=== PATIENT | female | born 1960 | race Caucasian/White ===

== ENCOUNTER → 2016-07-06 | Outpatient (CLI) | payer OTHER ==
--- NOTE | 2016-07-06 10:44 | MR ---
EXAMINATION TYPE: MR lumbar spine wo con DATE OF EXAM: 07/06/2016 10:31 AM COMPARISON: NONE HISTORY: Patient fell on ice recently and is having increased pain in low back TECHNIQUE: T1 and T2 axial and sagittal images of the lumbar spine are submitted. FINDINGS: There is no abnormal signal seen within the visualized spinal cord or paraspinal soft tissu es. At L1-2 there is mild hypertrophic change of the facets. No disc herniation or canal stenosis. No for aminal encroachment. At L2-3 there is moderate facet arthropathy. No foraminal encroachment. No disc herniation. At L3-4 there is diffuse disc bulging with a more focal left paracentral and lateral disc protrusion and moderate left-sided foraminal encroachment. Facet arthropathy and hypertrophic change and ligamen shruthi flavum result in moderate canal stenosis. At L4-5 there is disc desiccation with severe facet arthropathy and ligamentum flavum hypertrophy. Ci rcumferential disc bulging results in mild bilateral foraminal encroachment and mild canal stenosis. At L5-S1 there is facet arthropathy but no disc herniation or canal stenosis. Neural foramina are pat ent. IMPRESSION: 1. At L3-4 there is diffuse disc bulging with a more focal left paracentral and lateral disc protrusi on and moderate left-sided foraminal encroachment. Facet arthropathy and hypertrophic change and liga mentum flavum result in moderate canal stenosis. 2. Hypertrophic changes L4-L5 with disc bulging results in mild bilateral foraminal encroachment and mild canal stenosis.
== END | disposition home or self-care (01) ==
LOC: RADMRIMAIN 09:37
PROVIDERS: ATTEND Family Medicine
DX: M48.06 Spinal stenosis, lumbar region (principal); M51.16 Intervertebral disc disorders with radiculopathy, lumbar region; M46.96 Unspecified inflammatory spondylopathy, lumbar region
CPT/HCPCS: 72148

== ENCOUNTER 2016-08-31 07:23 | Day surgery (SDC) | payer OTHER ==
[2016-08-24 12:04] VITALS: BMI 24.0
[~2016-08-31 07:23] MED LIST: DEXAMETHASONE SOD PHOSPHATE 10 MG/ML 1 ML VIAL IV ONE; HEPARIN SODIUM,PORCINE 5,000 UNIT/ML 1 ML VIAL SQ ONE; HYDROmorphone 1 MG/ML 1 ML SYRINGE IVP PRN; LACTATED RINGERS 1,000 ML IV SCH; MIDAZOLAM 2 MG/2 ML VIAL IV PRN; ONDANSETRON 4 MG/2 ML VIAL IVP ONE; Pre Op ABX Message 1 EACH MISC MISCELLANE ONE
[2016-08-31] MEDS ORDERED: LIDOCAINE 1% 20 ML VIAL (10MG/ML) FOR IV START INTRADERMA ONE (08:04)
[2016-08-31] MEDS ORDERED: PROPOFOL 10 MG/ML 20 ML VIAL IV ONE (08:58)
[2016-08-31] MEDS ORDERED: SUCCINYLCHOLINE CHLORIDE 100 MG/5 ML SYR IV ONE (08:58)
[2016-08-31] MEDS ORDERED: MIDAZOLAM 2 MG/2 ML VIAL ONE (08:58)
[2016-08-31] MEDS ORDERED: LIDOCAINE 1% INJ 10MG/ML (20 ML MDV) ONE (08:58)
[2016-08-31] MEDS ORDERED: fentaNYL (PF) 50 MCG/ML 2 ML AMP ONE (08:58)
[2016-08-31] MEDS ORDERED: HEPARIN SODIUM,PORCINE 5,000 UNIT/ML 1 ML VIAL SQ ONE (09:05)
--- NOTE | 2016-08-31 09:07 | P.PN ---
Progress Note - Text Patient had preoperative discussion regarding the fact that the patient has bloody nipple discharge and the need for duct exploration. She understands she may have some numbness to the area of the nipple as well as nipple retraction and deformity. Despite the risks and benefits which also include bleeding infection reaction to the anesthetic she wishes to proceed.
[2016-08-31] MEDS ORDERED: SODIUM CHLORIDE 0.9% 50 ML with ceFAZolin 2,000 MG IV ONE ×2 (09:15)
[2016-08-31] MEDS ORDERED: LIDOCAINE 1% INJ 10MG/ML (20 ML MDV) SQ ONE ×2 (09:25→09:49)
--- NOTE | 2016-08-31 09:49 | P.OP ---
Date of Procedure: 08/31/16 Preoperative Diagnosis: bloody nipple discharge left breast Postoperative Diagnosis: Same Procedure(s) Performed: Left breast duct exploration Implants: Anesthesia: RACHAELA Surgeon: Malini Tran Estimated Blood Loss (ml): 3 IV fluids (ml): 600 Pathology: other (Left breast tissue) Condition: stable Disposition: PACU Indications for Procedure: Bloody nipple discharge Operative Findings: Dense breast tissue posterior to the left nipple complex Description of Procedure: Patient was taken to the operating room and following induction of anesthesia the left breast was prepped and draped in a sterile fashion. An inferior circumareolar incision was made and carried down to the breast tissue. This was dissected up to the dilated duct just at the midportion of the nipple. This tissue was dissected posteriorly to the chest wall. The tissue was removed. After we were assured that hemostasis was attained the wound was well irrigated. The skin was closed using a Monocryl. Patient tolerated procedure in stable condition. All instrument and sponge counts were correct at the end of the case.
--- NOTE | 2016-08-31 09:53 | P.DS ---
Providers Attending physician: Malini Tran Primary care physician: Soy Harding Plan - Discharge Summary New Discharge Prescriptions: HYDROcodone/APAP 5-325MG [[place] 5-325] 1 tab PO Q6HR PRN #14 tab PRN Reason: Pain Discharge Medication List Acyclovir [Zovirax] 400 mg PO BID 08/24/16 [History] Atorvastatin [Lipitor] 10 mg PO DAILY 08/24/16 [History] Meloxicam [Mobic] 15 mg PO DAILY 08/24/16 [History] HYDROcodone/APAP 5-325MG [[place] 5-325] 1 tab PO Q6HR PRN #14 tab 08/31/16 [Rx] Follow up Appointment(s)/Referral(s): Malini Tran MD [STAFF PHYSICIAN] - 1 Week Discharge Disposition: HOME SELF-CARE
[2016-08-31 10:12] VITALS: TEMP 96.9
[2016-08-31] MEDS ORDERED: LACTATED RINGERS 1,000 ML IV ONE (11:03)
[2016-08-31 11:17] VITALS: RESP 16
[2016-08-31] MEDS ORDERED: HYDROcodone/APAP 5-325MG 1 EACH TAB PO ONE (12:16)
[2016-08-31 13:14] VITALS: BP 119/73; PULSE 55
== END 2016-08-31 13:37 | disposition home or self-care (01) ==
LOC: OR 07:23
PROVIDERS: ATTEND Surgery
DX: D24.2 Benign neoplasm of left breast (principal); N60.32 Fibrosclerosis of left breast; N60.22 Fibroadenosis of left breast; N60.82 Other benign mammary dysplasias of left breast; N64.89 Other specified disorders of breast; N60.92 Unspecified benign mammary dysplasia of left breast; E78.5 Hyperlipidemia, unspecified; Z79.1 Long term (current) use of non-steroidal anti-inflammatories (NSAID); Z79.899 Other long term (current) drug therapy; Z91.040 Latex allergy status; Z91.09 Other allergy status, other than to drugs and biological substances
CPT/HCPCS: 81025; 88307; 19110; J2250; J1644; J1100; J2405; J2001; J3010; J1170; J0690; J0330; J2704